=== PATIENT | female | born 1990 | race Caucasian/White ===

== ENCOUNTER 2018-10-24 19:03 | Inpatient (IN) | payer SELFPAY ==
[~2018-10-24] VITALS: Ht 167.6 cm; Wt 75.8 kg
[~2018-10-24 19:03] MED LIST: ACHYD1T PO; DCS100C PO; DOCU100C37 PO; FLUC200T PO; HYDR-3720 PO; IBP800T PO; IBUP-1780 PO; Ibuprofen PO; OXYC-465 PO; PREN-37 PO; PREN1TAB14 PO
--- NOTE | 2018-10-24 19:05 | NUR ---
BREANNA DUKE presented to unit via from ED, with c/o CONTRACTIONS. BREANNA DUKE weighed, gowned, voided, and to bed. EFHM and TOCO applied, VS taken. BREANNA DUKE oriented to bed controls, call light, TV, heat, and A/C controls.
--- NOTE | 2018-10-24 19:27 | NUR ---
DR REID CALLED WITH REPORT OF PT ARRIVAL , C/O AND ASSESSMENT FINDINGS. NEW ORDERS RECEIVED.
[2018-10-24 19:30] VITALS: BP 131/72
[2018-10-24] MEDS: D5 LR IV SOLUTION 1,000 ML IV SCH (20:20)
[2018-10-24 20:39] LABS: BASOPHILS % (AUTO) 0 % (0-10); EOSINOPHILS % (AUTO) 1 % (0-10); HEMATOCRIT 31 % (35-52); HEMOGLOBIN 10.4 G/DL (11.5-16.0); LYMPHOCYTES % (AUTO) 23 % (12-44); MEAN CORPUSCULAR HEMOGLOBIN 29 PG (25-34); MEAN CORPUSCULAR HGB CONC 34 G/DL (32-36); MEAN CORPUSCULAR VOLUME 86 FL (80-99); MEAN PLATELET VOLUME 10.9 FL (7.4-10.4); MONOCYTES # (AUTO) 0.7 X 10^3 (0.0-1.0); MONOCYTES % (AUTO) 8 % (0-12); NEUTROPHILS # (AUTO) 5.9 X 10^3 (1.8-7.8); NEUTROPHILS % (AUTO) 68 % (42-75); PLATELET COUNT 210 10^3/uL (130-400); RED CELL DISTRIBUTION WIDTH 13.1 % (10.0-14.5); WHITE BLOOD COUNT 8.7 10^3/uL (4.3-11.0)
--- NOTE | 2018-10-24 21:17 | NUR ---
DR REID CALLED TO CHECK ON PT CONDITION. WILL CONT TO MONITOR THROUGH NIGHT AND UPDATE WITH CHANGES.
[2018-10-24] MEDS ORDERED: CATHETER FLUSH 10 ML SYR IV SCH (22:00)
--- NOTE | 2018-10-24 22:45 | NUR ---
PT'S IS HERE. PT DENIES ANY C/O'S AT THIS TIME.
[2018-10-25] VITALS (45 sets, daily range): BP systolic 92–152; BP diastolic 46–84
[2018-10-25] MEDS: D5 LR IV SOLUTION 1,000 ML IV SCH ×2 (03:20→10:08)
[2018-10-25] MEDS ORDERED: AMPICILLIN FOR IV USE 2,000 MG VIAL ONE (03:45)
[2018-10-25] MEDS ORDERED: WATER (STERILE) FOR INJECTION 20 ML ONE (03:46)
[2018-10-25] MEDS: AMPICILLIN FOR IV USE 1,000 MG in WATER (STERILE) FOR INJECTION 7.4 ML IV SCH ×2 (06:55→11:13)
[2018-10-25] MEDS ORDERED: LACTATED RINGERS 1,000 ML IV ONE ×2 (07:06→10:35)
[2018-10-25] MEDS ORDERED: OXYTOCIN/NORMAL SALINE 500 ML IV ONE (07:07)
[2018-10-25] MEDS ORDERED: SUFENTA 0.6MCG/ML BUPIVA 0.125 100 ML ONE (07:42)
[2018-10-25] MEDS ORDERED: OXYTOCIN/NORMAL SALINE 500 ML IV SCH ×2 (07:47→13:56)
--- NOTE | 2018-10-25 07:47 | History & Physical ---
History and Physical Date Seen by Provider: Oct 25, 2018 Time Seen by Provider: 07:45 This patient is a 27-year-old white female with an EDC of 7 1119. She was admitted in the late evening of 7 1019 with complaint of contractions. She had demonstrated some cervical change since her prior exam. Tracking somewhat irregularly but feeling pressure. Her history is significant for GBS positive culture at 35 weeks gestation. She was started empirically on ampicillin for GBS prophylaxis. Her contractions waxed and waned through the night plan is to augment with Pitocin under the cover of ampicillin and allow for progression in a vaginal delivery. Allergies are to sulfa which causes hives Medication is vitamins Medical social and surgical histories are present for record HEENT exam is normal Neck supple no lymphadenopathy no thyromegaly Abdomen is gravid soft nontender nondistended Extremities show no clubbing cyanosis. There is no Homans sign. Pelvic exam is deferred Laboratory Tests 10/24/18 20:15 Assessment and plan term at 40 weeks gestation admitted early labor/late in labor. Plan is for augmentation with Pitocin under the protection of ampicillin for GBS prophylaxis. Anticipation is for vaginal delivery Allergies and Home Medications Allergies Coded Allergies: Sulfa (Sulfonamide Antibiotics) (Verified Allergy, HIVES, 12/21/12) Home Medications Vit/Iron Fumarate/FA 1 Each Tablet, 1 EACH PO DAILY, (Reported) Patient Home Medication List Home Medication List Reviewed: Yes Clinical Quality Measures DVT/VTE Risk/Contraindication: Risk Factor Score Per Nursin RFS Level Per Nursing on Admit: 1=Low/No VTE PPX ENEIDA REID MD Oct 25, 2018 07:47
--- NOTE | 2018-10-25 08:23 | NUR ---
Raleigh MORSE CRNA here for epidural placement. Procedure explained, consent reviewed and signed by anesthesia. Questions answered to patient's satisfaction. Time out taken to verify correct patient/procedure. 0827 Patient up to side of bed, assisted into sitting position. 0829 Betadine prep done x3 and sterile drape applied. 0832 Local done, see anesthesia record. 0839 Test dose given, see anesthesia record for drug and dosage. 0840 Test dose #2 given, see anesthesia record for drug and dosage. Epidural catheter secured in place. Epidural placement complete. 0845 Assisted back into bed, monitors adjusted. Epidural dosed, see anesthesia record. Epidural of Sufenta/Bupvicaine @12cc/hr stated per pump. Patient tolerated procedure well.
--- OUTSIDE RECORDS SUMMARY | 2018-10-25 08:35 | XMS REPORT ---
Author Author KIMBERLY LUNA Organization [facility] Address [address] [place] [address] Care Team Providers Care Thermostat Mechanic Name Role Phone KIMBERLY LUNA Unavailable PROBLEMS Unknown Problems ALLERGIES Substance Reaction Event Type Date Status Sulfamethoxazole-Trimethoprim Unknown Drug Allergy Jan, Active ENCOUNTERS Encounter Location Date Diagnosis [facility] [address] [facility] [id number] [address] Jan, Visit for TB skin test Z11.1 and Encounter for general adult medical examination without abnormal findings Z00.00 IMMUNIZATIONS No Known Immunizations SOCIAL HISTORY Never Assessed REASON FOR VISIT Physical--[facility] physical PLAN OF CARE Activity Details Follow Up 48-72 hours Reason: VITAL SIGNS Height 65.5 in 2017-02-13 Weight 129.0 lbs 2017-02-13 Temperature 98.1 degrees Fahrenheit 2017-02-13 Heart Rate 76 bpm 2017-02-13 Respiratory Rate 18 2017-02-13 BMI 21.14 kg/m2 2017-02-13 Blood pressure systolic 134 mmHg 2017-02-13 Blood pressure diastolic 86 mmHg 2017-02-13 MEDICATIONS No Known Medications RESULTS No Results PROCEDURES Procedure Date Ordered Result Body Site TB INTRADERMAL 2017-02-13 N/A TB INTRADERMAL TEST Feb 13, 2017 INSTRUCTIONS MEDICATIONS ADMINISTERED No Known Medications MEDICAL (GENERAL) HISTORY Type Description Date Surgical History cyst removal as Hospitalization History child
--- OUTSIDE RECORDS SUMMARY | 2018-10-25 08:35 | XMS REPORT | Continuity of Care Document ---
Author Organization Unknown Address Unknown Allergies Active Description Code Type Severity Reaction Onset Reported/Identified Relationship to Patient Clinical Status Yes Sulfa (Sulfonamide Antibiotics) [id number] Drug Allergy Unknown HIVES 12/21/2012 Medications There is no data. Problems Date Dx Coded Attending Type Code Diagnosis Diagnosed By 09/18/2012 ENEIDA REID MD, Ot 641.13 12/23/2012 ENEIDA REID MD, Ot 285.9 12/23/2012 ENEIDA REID MD, Ot 644.21 12/23/2012 ENEIDA REID MD, Ot 648.21 12/23/2012 ENEIDA REID MD, Ot 663.11 12/23/2012 ENEIDA REID MD, Ot V07.2 12/23/2012 ENEIDA REID MD, Ot V27.0 02/21/2015 ENEIDA REID MD, Ot O63.0 PROLONGED FIRST STAGE (OF LABOR) 02/21/2015 ENEIDA REID MD, Ot O99.824 STREPTOCOCCUS B CARRIER STATE COMPLICATI 02/21/2015 ENEIDA REID MD, Ot Z23 ENCOUNTER FOR IMMUNIZATION 02/21/2015 ENEIDA REID MD, Ot Z37.0 SINGLE LIVE 02/21/2015 ENEIDA REID MD, Ot Z3A.40 40 WEEKS GESTATION OF Procedures Code Description Performed By Performed On [id number] DIVISION OF FEMALE PERINEUM, EXTERNAL AP 02/19/2015 Results Test Result Range Complete blood count (CBC) with automated white blood cell (WBC) differential - 10/24/18 20:15 Blood leukocytes automated count (number/volume) 8.7 10*3/uL 4.3-11.0 Blood erythrocytes automated count (number/volume) 3.60 10*6/uL 4.35-5.85 Venous blood hemoglobin measurement (mass/volume) 10.4 g/dL 11.5-16.0 Blood hematocrit (volume fraction) 31 % 35-52 Automated erythrocyte mean corpuscular volume 86 [foz_us] 80-99 Automated erythrocyte mean corpuscular hemoglobin (mass per erythrocyte) 29 pg 25-34 Automated erythrocyte mean corpuscular hemoglobin concentration measurement (mass/volume) 34 g/dL 32-36 Automated erythrocyte distribution width ratio 13.1 % 10.0- 14.5 Automated blood platelet count (count/volume) 210 10*3/uL 130-400 Automated blood platelet mean volume measurement 10.9 [foz_us] 7.4-10.4 Automated blood neutrophils/100 leukocytes 68 % 42-75 Automated blood lymphocytes/100 leukocytes 23 % 12-44 Blood monocytes/100 leukocytes 8 % 0-12 Automated blood eosinophils/100 leukocytes 1 % 0-10 Automated blood basophils/100 leukocytes 0 % 0-10 Blood neutrophils automated count (number/volume) 5.9 10*3 1.8-7.8 Blood lymphocytes automated count (number/volume) 2.0 10*3 1.0-4.0 Blood monocytes automated count (number/volume) 0.7 10*3 0.0- 1.0 Automated eosinophil count 0.0 10*3/uL 0.0-0.3 Automated blood basophil count (count/volume) 0.0 10*3/uL 0.0-0.1 Blood type T Indirect antibody screen panel - 10/24/18 20:15 WRISTBAND NUMBER [id number] NRG ABO+Rh group ABP NRG Blood group antibody screen NEGATIVE NRG Encounters ACCT No. Visit Date/Time Discharge Status Pt. Type Provider Facility Loc./Unit Complaint [id number] 02/18/2015 12:21:00 02/21/2015 15:45:00 DIS Inpatient ENEIDA REID MD [facility] LDRP INDUCTION [id number] 11/13/2013 06:45:00 11/15/2013 12:15:00 DIS Inpatient [id number] 12/21/2012 12:26:00 12/23/2012 21:59:00 DIS Inpatient ENEIDA REID MD [facility] [id number] 09/18/2012 19:01:00 09/18/2012 22:45:00 DIS Outpatient ENEIDA REID MD [facility] WSo [id number] 10/24/2018 19:03:00 ACT Outpatient ENEIDA REID MD [facility] LDRP CONTRACTIONS [id number] 09/19/2017 09:20:00 09/19/2017 23:59:59 CLS Outpatient [facility]UDHAKAR MILLER [facility]
--- OUTSIDE RECORDS SUMMARY | 2018-10-25 08:35 | XMS REPORT ---
Author Author MONCHO TORRE Organization [facility] Address [address] [place] [address] Care Team Providers Care Ingot Car Operator Name Role Phone YELITZA MONCHO Unavailable PROBLEMS Unknown Problems ALLERGIES Substance Reaction Event Type Date Status Sulfamethoxazole-Trimethoprim Unknown Drug Allergy Sep, Active ENCOUNTERS Encounter Location Date Diagnosis [facility] [address] [facility] [id number] [address] Sep, Seasonal allergic rhinitis, unspecified trigger J30.2 ; Strep pharyngitis J02.0 and Throat pain R07.0 [facility] [address] [facility] [id number] [address] Jan, Visit for TB skin test Z11.1 and Encounter for general adult medical examination without abnormal findings Z00.00 IMMUNIZATIONS Vaccine Route Administration Date Status ROCEPHIN 1 GM (IM) IM Intramuscular September 19, 2017 Administered SOCIAL HISTORY Never Assessed REASON FOR VISIT Sore throat-[place]wood[place], ears are sore as well PLAN OF CARE Activity Details Follow Up 2 weeks if not better Reason: VITAL SIGNS Height 65.5 in 2017-09-19 Weight 124.7 lbs 2017-09-19 Temperature 98.6 degrees Fahrenheit 2017-09-19 Heart Rate 68 bpm 2017-09-19 Respiratory Rate 16 2017-09-19 BMI 20.43 kg/m2 2017-09-19 Blood pressure systolic 118 mmHg 2017-09-19 Blood pressure diastolic 62 mmHg 2017-09-19 MEDICATIONS Medication Instructions Dosage Frequency Start Date End Date Duration Status Fluticasone Propionate 50 MCG/ACT Nasally Once a day 2 spray in each nostril x 7 days then 1 spray in each nare 24h Sep, 30 day(s) Active Fexofenadine HCl 180 MG Orally Once a day 1 tablet as needed 24h Sep, Nov, 30 day(s) Active RESULTS Name Result Date Reference Range STREP A (IN HOUSE) 2017-09-19 STREP A Positive Control + Lot # [id number] Exp date 03/16/2018 PROCEDURES Procedure Date Ordered Result Body Site STREP A ASSAY W/OPTIC September 19, 2017 THER/PROPH/DIAG INJ, SC/IM September 19, 2017 ROCEPHIN 1 GM (IM) September 19, 2017 INSTRUCTIONS MEDICATIONS ADMINISTERED No Known Medications MEDICAL (GENERAL) HISTORY Type Description Date Surgical History cyst removal as Hospitalization History child
[2018-10-25] MEDS ORDERED: fentaNYL INJECTION 100 MCG/2 ML AMP ONE (08:41)
[2018-10-25] MEDS ORDERED: EPIDURAL (SUFENTA 0.6MCG/ML BUPIVA 0.125%) 100 ML BAG EPI PRN (10:45)
[2018-10-25] MEDS ORDERED: NALOXONE 0.4 MG/ML 1 ML (NARCAN) VIAL IV PRN ×2 (10:45)
[2018-10-25] MEDS ORDERED: METOCLOPRAMIDE INJ 10 MG/2 ML (REGLAN) IV PRN (10:45)
[2018-10-25] MEDS ORDERED: diphenhydrAMINE 50 MG/ML INJ (BENADRYL) IV PRN (10:45)
[2018-10-25] MEDS ORDERED: ONDANSETRON 4 MG/2 ML (SDV) Z0FRAN IV PRN (10:45)
[2018-10-25] MEDS ORDERED: LIDOCAINE/EPI 2% 1:200,00 (XYLOCAINE) 10 ML VIAL ONE ×2 (12:12→12:45)
[2018-10-25] MEDS ORDERED: DOCU-143 PO (12:33)
[2018-10-25] MEDS ORDERED: IBUP-1780 PO (12:33)
[2018-10-25] MEDS ORDERED: OXYC1TAB87 PO (12:33)
--- NOTE | 2018-10-25 12:34 | Discharge Instructions ---
Discharge Instructions Discharge Medications New, Converted or Re-Newed RX: RX on Chart Patient Instructions Patient Instructions: As directed Return to The Hospital For: As directed Activity & Diet Discharge Diet: No Restrictions Activity as Tolerated: No Orders-Post D/C & Referrals Follow Up Appt: Call to make follow up appt. for patient in 4 weeks. Activity Per routine post vaginal delivery instructions. Please call in RX to patient pharmacy. Diet as tolerated Patient may shower or tub bathe as desired. ENEIDA REID MD Oct 25, 2018 12:34
[2018-10-25] MEDS ORDERED: oxyCODONE/APAP 5/325MG (PERCOCET 5) TABLET PO PRN (14:00)
[2018-10-25] MEDS ORDERED: ONDANSETRON 4 MG/2 ML (SDV) Z0FRAN IVP PRN (14:00)
[2018-10-25] MEDS ORDERED: TETANUS,DIPTH,PERTUSS P/F (BOOSTRIX) 0.5 ML VIAL IM ONE (14:00)
[2018-10-25] MEDS ORDERED: MEASLES,MUMPS,RUBELLA 1 EA INJ SC ONE (14:00)
[2018-10-25] MEDS ORDERED: BENZOCAINE/MENTHOL (DERMOPLAST) 56 ML CAN TP PRN (14:00)
[2018-10-25] MEDS: KETOROLAC 30 MG/ML VIAL IVP PRN ×2 (15:18→20:49)
--- NOTE | 2018-10-25 15:35 | NUR ---
REFER TO LABOR FLOW SHEET.
--- NOTE | 2018-10-25 18:04 | OPERATIVE REPORT ---
DATE OF SERVICE: 10/25/2018 DELIVERY NOTE The patient delivered by term spontaneous vaginal delivery, a viable male with Apgars of 7 and 9 at one and five minutes respectively, expected weight 7 pounds 4 ounces, time 12:52 hours and cord blood pH is pending. There was a nuchal cord x1 that was easily released. The was delivered from straight OP position under epidural analgesia augmented with local analgesia in the perineum. The was bulb suctioned on delivery of the head. The nuchal cord was easily released, the delivery completed atraumatically. The infant was bulb suctioned on delivery of the head again on completion of delivery. Cord bloods were obtained. The placenta was delivered spontaneously Hernandez. It was a battledore placenta with a very slight velamentous insertion of the vessels, but otherwise normal. It was sent to pathology for permanent section due to the patient's GBS positive status. The placenta having delivered, the cervix, vagina, rectum, and perineum were examined and found intact, except for the midline episiotomy, which had been performed with the vertex on the perineum in the straight OP position and inadequate room to facilitate delivery without significant damage to the perineum. The episiotomy was performed and the delivery completed. Cord bloods were obtained as were the other blood. The episiotomy was repaired with a single suture of 3-0 Vicryl in the usual manner without difficulty. The patient tolerated the delivery and the repair well and remained in the LDR for recovery. The baby remained with the mom. Sponge and needle counts were correct. Estimated blood loss was around 200 mL. Job ID: [id number] DocumentID: [id number] Dictated Date: 10/25/2018 13:11:52 Lens Mounter Date: 10/25/2018 18:03:36 Dictated By: ENEIDA REID MD
--- NOTE | 2018-10-25 18:14 | NUR ---
PT AT THIS TIME. NO NEEDS VOICED. PITOCIN INFUSION CONTINUES. S/O AT THE BEDSIDE.
[2018-10-25] MEDS ORDERED: DOCUSATE SODIUM 100 MG (COLACE) CAP PO SCH (21:00)
--- NOTE | 2018-10-25 21:58 | NUR ---
Called Dr. Melgar, being transferred to [facility] pt. requesting to be D/C'd, new orders rc'd to D/C now. POC reviewed w/pt., verbalized understanding & appreciative.
[2018-10-26] MEDS ORDERED: AMPICILLIN FOR IV USE 2,000 MG in WATER (STERILE) FOR INJECTION 14.8 ML IV SCH (03:00)
[2018-10-26] MEDS ORDERED: IBUPROFEN 800 MG (MOTRIN) TAB PO SCH (12:00)
--- NOTE | 2018-10-26 13:36 | Anesthesia-Regional Post-Op ---
Regional Patient Condition Mental Status: Alert, Oriented x3 Circulation: Same as Pre-Op Headache: Absent Sensation: Full Recovery Motor Block: Absent Post Op Complications Complications None Follow Up Care/Instructions Patient Instructions None needed. Anesthesia/Patient Condition Patient is doing well, no complaints, stable vital signs, no apparent adverse anesthesia problems. No complications reported per nursing. KELLY RICHARDS CRNA Oct 26, 2018 13:36
== END 2018-10-25 23:05 | disposition home or self-care (01) | DRG 807 ==
LOC: WSo 19:03 → LDRP 19:03 → WSo 10-25 07:49 → LDRP 10-25 07:49
PROVIDERS: ADMIT Obstetrics & Gynecology; ATTEND Obstetrics & Gynecology
PROC: 10E0XZZ Delivery of Products of Conception, External Approach (ICD-10-PCS; principal; 2018-10-25)
PROC: 0W8NXZZ Division of Female Perineum, External Approach (ICD-10-PCS; 2018-10-25)
DX: O64.0XX0 Obstructed labor due to incomplete rotation of fetal head, not applicable or unspecified (principal); O43.193 Other malformation of placenta, third trimester; O69.81X0 Labor and delivery complicated by cord around neck, without compression, not applicable or unspecified; O99.824 Streptococcus B carrier state complicating childbirth; Z37.0 Single live birth; Z3A.40 40 weeks gestation of pregnancy
CPT/HCPCS: 36415; 85025; 86850; 86900; 86901; 99212